=== PATIENT | male | born 1965 | race Caucasian/White ===

== ENCOUNTER 2018-10-27 18:45 | Emergency (ER) | payer OTHER ==
[~2018-10-27] VITALS: Ht 165.1 cm; Wt 87.5 kg
[2018-10-27 18:53] VITALS: Ht 165.1 cm; Wt 87.5 kg
[2018-10-27 21:03] VITALS: BP 127/87
== END 2018-10-27 21:04 | disposition home or self-care (01) ==
LOC: ED 18:45
DX: S63.296A Dislocation of distal interphalangeal joint of right little finger, initial encounter (principal); F20.9 Schizophrenia, unspecified; W23.0XXA Caught, crushed, jammed, or pinched between moving objects, initial encounter; Y93.67 Activity, basketball; Y92.320 Baseball field as the place of occurrence of the external cause; Y99.8 Other external cause status
CPT/HCPCS: J2001; Q0163